=== PATIENT | female | born 1950 | race Hispanic/Latino ===

== ENCOUNTER 2016-03-29 08:19 | Outpatient (CLI) | payer MEDICARE ==
--- NOTE | 2016-03-29 08:55 | Mammography Report ---
Right mammogram: Additional lateral compression imaging is performed for asymmetry described on recent screening study of March 02, 2016. The focal density that was previously noted is no longer identified and compresses as normal tissue. The current findings are unchanged compared to August 2013. Impression: Normal findings. Recommendation: Annual mammogram followup. BI-RADS CATEGORY: 1 = Negative ACR BI-RADS MAMMOGRAPHIC CODES: 0 = Needs additional imaging evaluation; 1 = Negative; 2 = Benign; 3 = Probably benign; 4 = Suspicious; 5 = Malignant; 6 = Known biopsy-proven malignancy COMMENT: 1. Dense breast tissue, i.e., adenosis, fibrocystic changes, etc., may obscure an underlying neoplasm. 2. Approximately 10% of cancers are not detected with mammography. 3. A negative mammography report should not delay biopsy if a clinically suspicious mass is present.
== END 2016-03-29 08:20 | disposition home or self-care (01) ==
LOC: MAMMO 08:19
DX: C50.919 Malignant neoplasm of unspecified site of unspecified female breast (principal); R92.8 Other abnormal and inconclusive findings on diagnostic imaging of breast
CPT/HCPCS: G0206-RT

== ENCOUNTER 2016-11-09 09:13 | Outpatient (CLI) | payer MEDICARE ==
--- NOTE | 2016-11-09 12:56 | XRay Report ---
Bilateral hips with pelvis: Findings: Normal pelvis. Arthritic changes at the joints. No fracture. Cortical irregularity with soft tissue calcification right ischium. Impression: Mild arthritic changes in joints. No lytic or blastic lesion or acute fracture pelvis. Cortical irregularity with soft tissue calcification right ischium.
--- NOTE | 2016-11-09 12:58 | XRay Report ---
Lumbosacral spine 3 views: History: Bone pain, hip pain. Findings: Rotoscoliosis of the lumbar spine with convexity to right. Normal height of vertebral bodies. Decrease in height of the intervertebral disc spaces. Sclerotic articular surfaces with osteophyte suggestive severe degenerative changes. No fracture. Calcified abdominal aorta without aneurysm. L1 vertebral body is not optimally visualized due to rotoscoliosis and possibility of fracture, if present, in the region cannot be entirely excluded. Impression: Findings as detailed above. Degenerative lumbar spine.
--- NOTE | 2016-11-09 13:00 | XRay Report ---
Sacrum and coccyx 2 views: Findings: There is deformity noted at the proximal aspect of coccyx below sacrococcygeal junction. This may be related to old injury. There is no soft tissue swelling noted. No calcification. Impression: Findings as detailed above.
--- NOTE | 2016-11-10 10:31 | Nuclear Medicine Report ---
NUCLEAR MEDICINE BONE SCAN WHOLE BODY History: Bone pain, back pain. Right hip pain. Technique: Anterior and posterior whole body images and oblique images of the pelvis were obtained after 3 hours. 25 mCi of technetium 99m MDP was administered. Findings: Correlation is made with radiographs of the hips, pelvis and lumbar spine performed the same day. There is physiologic uptake of the radiotracer. There is mild to moderate degenerative uptake throughout the thoracic and lumbar spine. This correlates with scoliosis and advanced degenerative changes seen on x-ray. There is no abnormal uptake in the right hip region. No metastatic pattern is appreciated. Impression: Degenerative changes. No fracture or metastatic pattern is detected on bone scan.
== END 2016-11-09 09:14 | disposition home or self-care (01) ==
LOC: NM 09:13
DX: M47.896 Other spondylosis, lumbar region (principal); M47.894 Other spondylosis, thoracic region; M16.0 Bilateral primary osteoarthritis of hip; M89.9 Disorder of bone, unspecified; M53.3 Sacrococcygeal disorders, not elsewhere classified; M41.86 Other forms of scoliosis, lumbar region; I70.0 Atherosclerosis of aorta
CPT/HCPCS: 72100; 72220; 73521; 78306; A9503

== ENCOUNTER 2017-03-04 07:57 | Outpatient (CLI) | payer MEDICARE ==
--- NOTE | 2017-03-04 08:48 | Mammography Report ---
Right mammogram: Left mastectomy. Routine views of the right breast compared to comparable exam in February 2015. There is a heterogeneously dense fibroglandular pattern which is otherwise unremarkable and the findings are unchanged compared to prior examination. CAD not captured. Impression: Stable right breast status post left mastectomy. Recommendation: Annual mammogram followup. BI-RADS CATEGORY: 1 = Negative ACR BI-RADS MAMMOGRAPHIC CODES: 0 = Needs additional imaging evaluation; 1 = Negative; 2 = Benign; 3 = Probably benign; 4 = Suspicious; 5 = Malignant; 6 = Known biopsy-proven malignancy COMMENT: 1. Dense breast tissue, i.e., adenosis, fibrocystic changes, etc., may obscure an underlying neoplasm. 2. Approximately 10% of cancers are not detected with mammography. 3. A negative mammography report should not delay biopsy if a clinically suspicious mass is present.
== END 2017-03-04 07:58 | disposition home or self-care (01) ==
LOC: MAMMO 07:57
DX: Z12.31 Encounter for screening mammogram for malignant neoplasm of breast (principal)
CPT/HCPCS: 77067; G0202

== ENCOUNTER 2017-05-13 08:35 | Outpatient (CLI) | payer MEDICARE ==
[2017-05-13] MEDS ORDERED: XYLOCAINE TOPICAL 4% TP ONE ×2 (09:38→09:39)
[2017-05-13] MEDS ORDERED: XYLOCAINE 1% 20 mL ONE (10:31)
== END 2017-05-13 08:36 | disposition home or self-care (01) ==
LOC: WOUND 08:35
PROVIDERS: ATTEND Internal Medicine
DX: I87.312 Chronic venous hypertension (idiopathic) with ulcer of left lower extremity (principal); L97.821 Non-pressure chronic ulcer of other part of left lower leg limited to breakdown of skin; J44.1 Chronic obstructive pulmonary disease with (acute) exacerbation; Z87.891 Personal history of nicotine dependence; Z72.89 Other problems related to lifestyle; Z85.3 Personal history of malignant neoplasm of breast
CPT/HCPCS: 11044; G0463

== ENCOUNTER 2017-05-15 08:08 | Outpatient (CLI) | payer MEDICARE ==
--- NOTE | 2017-05-18 14:36 | Vascular Lab Report ---
LOWER EXTREMITY ARTERIAL DUPLEX: REASON FOR EXAM: Leg pain. COMMENTS ON THE RIGHT: Triphasic waveforms are seen proximally. Monophasic waveforms are seen distally. Monophasic flow is noted in the posterior tibial artery. Scattered plaque is seen throughout. Findings are consistent with mildly abnormal perfusion. Findings are potentially consistent with the ability to heal distal wounds. COMMENTS ON THE LEFT: Triphasic waveforms are seen proximally. Biphasic waveforms are seen distally. A monophasic signal is seen in the posterior tibial artery. Scattered plaque is seen throughout. Findings are consistent with mildly abnormal perfusion. Findings are potentially consistent with the ability to heal distal wounds. IMPRESSION: RIGHT: Posterior tibial artery occlusive disease. The rest of the arterial flow appears to be adequate. 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 The rest of the arterial flow appears to be adequate.
== END 2017-05-15 08:09 | disposition home or self-care (01) ==
LOC: VAS 08:08
PROVIDERS: ATTEND Internal Medicine
DX: I70.203 Unspecified atherosclerosis of native arteries of extremities, bilateral legs (principal)
CPT/HCPCS: 93925

== ENCOUNTER 2017-05-20 08:19 | Outpatient (CLI) | payer MEDICARE ==
[2017-05-20] MEDS ORDERED: XYLOCAINE TOPICAL 4% TP ONE (08:31)
== END 2017-05-20 08:20 | disposition home or self-care (01) ==
LOC: WOUND 08:19
PROVIDERS: ATTEND Internal Medicine
DX: L97.821 Non-pressure chronic ulcer of other part of left lower leg limited to breakdown of skin (principal); I87.312 Chronic venous hypertension (idiopathic) with ulcer of left lower extremity; J44.1 Chronic obstructive pulmonary disease with (acute) exacerbation; Z87.891 Personal history of nicotine dependence; Z72.89 Other problems related to lifestyle

== ENCOUNTER 2017-05-27 08:08 | Outpatient (CLI) | payer MEDICARE ==
[2017-05-27] MEDS ORDERED: XYLOCAINE TOPICAL 4% TP ONE (08:28)
== END 2017-05-27 08:09 | disposition home or self-care (01) ==
LOC: WOUND 08:08
PROVIDERS: ATTEND Internal Medicine
DX: L97.821 Non-pressure chronic ulcer of other part of left lower leg limited to breakdown of skin (principal); J44.1 Chronic obstructive pulmonary disease with (acute) exacerbation; Z85.3 Personal history of malignant neoplasm of breast; Z87.891 Personal history of nicotine dependence

== ENCOUNTER 2017-06-03 08:01 | Outpatient (CLI) | payer MEDICARE ==
[2017-06-03] MEDS ORDERED: XYLOCAINE TOPICAL 4% TP ONE ×2 (08:30→08:31)
[2017-06-03] MEDS ORDERED: XYLOCAINE 2% INFILTRATI NR (09:09)
== END 2017-06-03 08:02 | disposition home or self-care (01) ==
LOC: WOUND 08:01
PROVIDERS: ATTEND Internal Medicine
DX: L97.821 Non-pressure chronic ulcer of other part of left lower leg limited to breakdown of skin (principal); I87.312 Chronic venous hypertension (idiopathic) with ulcer of left lower extremity; I87.8 Other specified disorders of veins; J44.1 Chronic obstructive pulmonary disease with (acute) exacerbation; D05.90 Unspecified type of carcinoma in situ of unspecified breast; Z87.891 Personal history of nicotine dependence
CPT/HCPCS: 29581

== ENCOUNTER 2017-06-10 08:04 | Outpatient (CLI) | payer MEDICARE ==
[2017-06-10] MEDS ORDERED: XYLOCAINE TOPICAL 4% TP ONE ×2 (08:22→08:31)
== END 2017-06-10 08:05 | disposition home or self-care (01) ==
LOC: WOUND 08:04
PROVIDERS: ATTEND Internal Medicine
DX: I87.312 Chronic venous hypertension (idiopathic) with ulcer of left lower extremity (principal); L97.821 Non-pressure chronic ulcer of other part of left lower leg limited to breakdown of skin; J44.1 Chronic obstructive pulmonary disease with (acute) exacerbation; Z85.3 Personal history of malignant neoplasm of breast; Z87.891 Personal history of nicotine dependence
CPT/HCPCS: 29581

== ENCOUNTER 2017-06-17 08:02 | Outpatient (CLI) | payer MEDICARE ==
[2017-06-17] MEDS ORDERED: XYLOCAINE TOPICAL 4% TP ONE (08:16)
== END 2017-06-17 08:03 | disposition home or self-care (01) ==
LOC: WOUND 08:02
PROVIDERS: ATTEND Internal Medicine
DX: I87.312 Chronic venous hypertension (idiopathic) with ulcer of left lower extremity (principal); L97.821 Non-pressure chronic ulcer of other part of left lower leg limited to breakdown of skin; J44.1 Chronic obstructive pulmonary disease with (acute) exacerbation; Z85.3 Personal history of malignant neoplasm of breast; Z87.891 Personal history of nicotine dependence

== ENCOUNTER 2017-06-24 08:05 | Outpatient (CLI) | payer MEDICARE ==
[2017-06-24] MEDS ORDERED: XYLOCAINE TOPICAL 4% TP ONE (08:28)
== END 2017-06-24 08:06 | disposition home or self-care (01) ==
LOC: WOUND 08:05
PROVIDERS: ATTEND Internal Medicine
DX: I87.312 Chronic venous hypertension (idiopathic) with ulcer of left lower extremity (principal); L97.821 Non-pressure chronic ulcer of other part of left lower leg limited to breakdown of skin; S81.801D Unspecified open wound, right lower leg, subsequent encounter; J44.1 Chronic obstructive pulmonary disease with (acute) exacerbation; Z85.3 Personal history of malignant neoplasm of breast; Z87.891 Personal history of nicotine dependence; X58.XXXD Exposure to other specified factors, subsequent encounter

== ENCOUNTER 2017-07-01 08:07 | Outpatient (CLI) | payer MEDICARE ==
[2017-07-01] MEDS ORDERED: XYLOCAINE TOPICAL 4% TP ONE ×2 (08:36→08:37)
[2017-07-01] MEDS ORDERED: SODIUM CHLORIDE FLUSH SYRINGE 10 ML IV ONE ×2 (08:56→09:05)
== END 2017-07-01 08:08 | disposition home or self-care (01) ==
LOC: WOUND 08:07
PROVIDERS: ATTEND Internal Medicine
DX: I87.312 Chronic venous hypertension (idiopathic) with ulcer of left lower extremity (principal); L97.821 Non-pressure chronic ulcer of other part of left lower leg limited to breakdown of skin; S81.801D Unspecified open wound, right lower leg, subsequent encounter; J44.1 Chronic obstructive pulmonary disease with (acute) exacerbation; Z85.3 Personal history of malignant neoplasm of breast; Z87.891 Personal history of nicotine dependence; X58.XXXD Exposure to other specified factors, subsequent encounter
CPT/HCPCS: 15275; Q4158

== ENCOUNTER 2017-07-08 08:01 | Outpatient (CLI) | payer MEDICARE ==
[2017-07-08] MEDS ORDERED: XYLOCAINE TOPICAL 4% TP ONE (08:38)
[2017-07-08] MEDS ORDERED: SODIUM CHLORIDE FLUSH SYRINGE 10 ML IV ONE (08:48)
[2017-07-09] MEDS ORDERED: SODIUM CHLORIDE FLUSH SYRINGE 10 ML IV ONE (08:51)
== END 2017-07-08 08:02 | disposition home or self-care (01) ==
LOC: WOUND 08:01
PROVIDERS: ATTEND Internal Medicine
DX: I87.312 Chronic venous hypertension (idiopathic) with ulcer of left lower extremity (principal); L97.821 Non-pressure chronic ulcer of other part of left lower leg limited to breakdown of skin; J44.1 Chronic obstructive pulmonary disease with (acute) exacerbation; Z85.3 Personal history of malignant neoplasm of breast; Z87.891 Personal history of nicotine dependence
CPT/HCPCS: 15271; Q4158; 15275

== ENCOUNTER 2017-07-15 09:50 | Outpatient (CLI) | payer MEDICARE ==
[2017-07-15] MEDS ORDERED: XYLOCAINE TOPICAL 4% TP ONE (10:23)
[2017-07-15] MEDS ORDERED: SODIUM CHLORIDE FLUSH SYRINGE 10 ML IV ONE ×2 (10:52→14:00)
== END 2017-07-15 09:51 | disposition home or self-care (01) ==
LOC: WOUND 09:50
PROVIDERS: ATTEND Internal Medicine
DX: I87.312 Chronic venous hypertension (idiopathic) with ulcer of left lower extremity (principal); L97.821 Non-pressure chronic ulcer of other part of left lower leg limited to breakdown of skin; J44.1 Chronic obstructive pulmonary disease with (acute) exacerbation; Z85.3 Personal history of malignant neoplasm of breast; Z87.891 Personal history of nicotine dependence
CPT/HCPCS: 15271; Q4158

== ENCOUNTER 2017-07-22 09:48 | Outpatient (CLI) | payer MEDICARE ==
[2017-07-22] MEDS ORDERED: XYLOCAINE TOPICAL 4% TP ONE ×2 (10:30→10:38)
== END 2017-07-22 09:49 | disposition home or self-care (01) ==
LOC: WOUND 09:48
PROVIDERS: ATTEND Surgery
DX: I87.312 Chronic venous hypertension (idiopathic) with ulcer of left lower extremity (principal); L97.821 Non-pressure chronic ulcer of other part of left lower leg limited to breakdown of skin; J44.1 Chronic obstructive pulmonary disease with (acute) exacerbation; Z85.3 Personal history of malignant neoplasm of breast; Z87.891 Personal history of nicotine dependence

== ENCOUNTER 2017-07-29 10:08 | Outpatient (CLI) | payer MEDICARE ==
[2017-07-29] MEDS ORDERED: XYLOCAINE TOPICAL 4% TP ONE ×2 (10:17→11:34)
== END 2017-07-29 10:09 | disposition home or self-care (01) ==
LOC: WOUND 10:08
PROVIDERS: ATTEND Surgery
DX: I87.312 Chronic venous hypertension (idiopathic) with ulcer of left lower extremity (principal); L97.821 Non-pressure chronic ulcer of other part of left lower leg limited to breakdown of skin; J44.1 Chronic obstructive pulmonary disease with (acute) exacerbation; Z85.3 Personal history of malignant neoplasm of breast; Z87.891 Personal history of nicotine dependence

== ENCOUNTER 2017-08-05 09:58 | Outpatient (CLI) | payer MEDICARE ==
[2017-08-05] MEDS ORDERED: XYLOCAINE TOPICAL 4% TP ONE (10:12)
== END 2017-08-05 09:59 | disposition home or self-care (01) ==
LOC: WOUND 09:58
PROVIDERS: ATTEND Surgery
DX: I87.312 Chronic venous hypertension (idiopathic) with ulcer of left lower extremity (principal); L97.821 Non-pressure chronic ulcer of other part of left lower leg limited to breakdown of skin; J44.1 Chronic obstructive pulmonary disease with (acute) exacerbation; Z85.3 Personal history of malignant neoplasm of breast; Z87.891 Personal history of nicotine dependence
CPT/HCPCS: 97597

== ENCOUNTER 2017-08-14 09:50 | Outpatient (CLI) | payer MEDICARE ==
[2017-08-14] MEDS ORDERED: XYLOCAINE TOPICAL 4% TP ONE ×2 (09:56→10:10)
== END 2017-08-14 09:51 | disposition home or self-care (01) ==
LOC: WOUND 09:50
PROVIDERS: ATTEND Surgery
DX: I87.312 Chronic venous hypertension (idiopathic) with ulcer of left lower extremity (principal); L97.821 Non-pressure chronic ulcer of other part of left lower leg limited to breakdown of skin; J44.1 Chronic obstructive pulmonary disease with (acute) exacerbation; Z85.3 Personal history of malignant neoplasm of breast; Z87.891 Personal history of nicotine dependence

== ENCOUNTER 2017-08-20 10:24 | Outpatient (CLI) | payer MEDICARE ==
[2017-08-20] MEDS ORDERED: XYLOCAINE TOPICAL 4% TP ONE ×2 (10:47→10:53)
== END 2017-08-20 10:25 | disposition home or self-care (01) ==
LOC: WOUND 10:24
PROVIDERS: ATTEND Surgery
DX: I87.312 Chronic venous hypertension (idiopathic) with ulcer of left lower extremity (principal); L97.821 Non-pressure chronic ulcer of other part of left lower leg limited to breakdown of skin; J44.1 Chronic obstructive pulmonary disease with (acute) exacerbation; Z85.3 Personal history of malignant neoplasm of breast; Z87.891 Personal history of nicotine dependence

== ENCOUNTER 2017-08-27 10:05 | Outpatient (CLI) | payer MEDICARE ==
[2017-08-27] MEDS ORDERED: XYLOCAINE TOPICAL 4% TP ONE ×2 (10:10→14:01)
== END 2017-08-27 10:06 | disposition home or self-care (01) ==
LOC: WOUND 10:05
PROVIDERS: ATTEND Surgery
DX: I87.312 Chronic venous hypertension (idiopathic) with ulcer of left lower extremity (principal); L97.821 Non-pressure chronic ulcer of other part of left lower leg limited to breakdown of skin; J44.1 Chronic obstructive pulmonary disease with (acute) exacerbation; Z85.3 Personal history of malignant neoplasm of breast; Z87.891 Personal history of nicotine dependence

== ENCOUNTER 2017-09-03 09:53 | Outpatient (CLI) | payer MEDICARE ==
[2017-09-03] MEDS ORDERED: XYLOCAINE TOPICAL 4% TP ONE ×2 (10:40→15:38)
== END 2017-09-03 09:54 | disposition home or self-care (01) ==
LOC: WOUND 09:53
PROVIDERS: ATTEND Surgery
DX: I87.312 Chronic venous hypertension (idiopathic) with ulcer of left lower extremity (principal); L97.821 Non-pressure chronic ulcer of other part of left lower leg limited to breakdown of skin; J44.1 Chronic obstructive pulmonary disease with (acute) exacerbation; Z85.3 Personal history of malignant neoplasm of breast; Z87.891 Personal history of nicotine dependence

== ENCOUNTER 2017-09-10 09:56 | Outpatient (CLI) | payer MEDICARE ==
[2017-09-10] MEDS ORDERED: XYLOCAINE TOPICAL 4% TP ONE ×2 (10:20→15:01)
== END 2017-09-10 09:57 | disposition home or self-care (01) ==
LOC: WOUND 09:56
PROVIDERS: ATTEND Surgery
DX: I87.312 Chronic venous hypertension (idiopathic) with ulcer of left lower extremity (principal); L97.821 Non-pressure chronic ulcer of other part of left lower leg limited to breakdown of skin; J44.1 Chronic obstructive pulmonary disease with (acute) exacerbation; Z85.3 Personal history of malignant neoplasm of breast; Z87.891 Personal history of nicotine dependence

== ENCOUNTER 2017-09-19 09:51 | Outpatient (CLI) | payer MEDICARE ==
[2017-09-19] MEDS ORDERED: XYLOCAINE TOPICAL 4% TP ONE ×2 (10:08→10:15)
== END 2017-09-19 09:52 | disposition home or self-care (01) ==
LOC: WOUND 09:51
PROVIDERS: ATTEND Surgery
DX: I87.312 Chronic venous hypertension (idiopathic) with ulcer of left lower extremity (principal); L97.821 Non-pressure chronic ulcer of other part of left lower leg limited to breakdown of skin; J44.1 Chronic obstructive pulmonary disease with (acute) exacerbation; Z85.3 Personal history of malignant neoplasm of breast; Z87.891 Personal history of nicotine dependence

== ENCOUNTER 2017-10-02 09:49 | Outpatient (CLI) | payer MEDICARE | END 2017-10-02 09:50 | disposition home or self-care (01) | LOC: WOUND 09:49 | PROVIDERS: ATTEND Surgery | DX: I87.312 Chronic venous hypertension (idiopathic) with ulcer of left lower extremity (principal); L97.821 Non-pressure chronic ulcer of other part of left lower leg limited to breakdown of skin; J44.1 Chronic obstructive pulmonary disease with (acute) exacerbation; Z85.3 Personal history of malignant neoplasm of breast; Z87.891 Personal history of nicotine dependence | CPT/HCPCS: 99213; G0463 ==

== ENCOUNTER 2018-12-01 10:46 | Outpatient (CLI) | payer MEDICARE ==
--- NOTE | 2018-12-02 15:43 | Mammography Report ---
BONE DEXA. History: OSTEOPOROSIS/MALIGNANT NEOPLASM OF UPPER INNER QUAD OF L BREAST Procedure: 3 site bone densitometry performed on a Hologic scanner. Comparison: 04/07/2013 for the spine and left hip and 10/11/2015 for the left hip. No comparison study of the right hip. Findings: The BMD of the lumbar spine is 1.332 gm/cm2 with a T-score of +2.6 and a Z-score of +4.6 . This gita res to 1.203gm/cm2 on the last exam and represents a +10.7% change from the previous baseline. The total BMD of the left hip is 0.758 gm/cm2 with a T-score of -1.5 and a Z-score of -0.1. This comp bobby to 0.763 on the last exam and represents a -0.7% change from the last study and a +5.2 % change from baseline. The total BMD of the right is 0.731gm/cm2 with a T score of -1.7 and a Z score of -0.3. There is no c omparison study for the right hip. IMPRESSION: 1. WHO Classification: Normal with average fracture risk based on lumbar spine measurements. A signif icant improvement in BMD compared to the last exam but this is probably related to endplate sclerosis secondary to degenerative disc disease. 2. WHO classification: Osteopenia with increased fracture risk based on left hip measurements. A slig ht decline in left hip BMD compared to the last exam. 3. WHO classification: Osteopenia with increased fracture risk based on right hip measurements. No co mparison study of the right hip. 4. The FRAX 10 year fracture probability for a major osteoporotic fracture is 11% . 5. The FRAX 10 year fracture probability for right hip fracture is 2.2% and fracture probability for the left hip is 1.8%. Note:FRAX version 3.01. Fracture probability calculated for an untreated patient. Fracture probabilit y may be lower if the patient has received treatment. RECOMMENDATION: Clinical correlation and routine screening. Definitions: BMD = Bone Mineral Density T score = BMD related to mean peak bone mass of young adult ([place] expressed an standard deviation) Z score = Age-matched BMD expressed in SD World health organization (WHO) diagnostic criteria: Normal: T score greater than -1 SD. Osteopenia: T score between - SD and -2.4 SD. Osteoporosis: T score -2.5 SD or below Note: BMD is not the only risk factor for fracture; also consider factors such as the patient's age, risk of falling, previous osteoporotic fracture, family history of osteoporotic fractures, smoking st atus and low body weight. All treatment decisions require clinical judgment and consideration of individual patient factors inc luding patient preferences, comorbidities, previous drug use and risk factors not captured in the FRA X model (e.g. Frailty, falls, vitamin D deficiency, increased bone turnover, interval significant dec line in BMD). A more detailed DEXA Bone Densitometry report is available upon request. Signer Name: Federico Mooney MD Signed: 12/02/2018 3:39 PM Workstation Name: [id number]
== END 2018-12-01 10:47 | disposition home or self-care (01) ==
LOC: MAMMO 10:46
PROVIDERS: ATTEND Internal Medicine Hematology & Oncology
DX: M85.88 Other specified disorders of bone density and structure, other site (principal); M81.0 Age-related osteoporosis without current pathological fracture
CPT/HCPCS: 77080

== ENCOUNTER 2019-03-06 10:46 | Outpatient (CLI) | payer MEDICARE ==
--- NOTE | 2019-03-06 12:26 | Mammography Report ---
RIGHT DIGITAL SCREENING MAMMOGRAM WITH CAD INDICATION: Routine screening mammography, status post left mastectomy.. TECHNIQUE: Digital right 2D mammography was obtained in the craniocaudal and mediolateral oblique pr ojections. This examination was interpreted with the benefit of Computer-Aided Detection analysis. COMPARISON: 03/05/2018, 03/04/2017. FINDINGS: The right breast is heterogeneously dense which may obscure small masses. No suspicious mass, microcalcifications, or architectural distortion. IMPRESSION: No evidence of breast malignancy. Recommend routine screening mammogram in one year. BI-RADS Category 1: Negative. No mammographic evidence of malignancy. Recommend routine screening m ammography in one year. A "normal" or negative report should not discourage follow up or biopsy of a clinically significant f inding. A written summary of these findings will be mailed to the patient. The patient will be entered into a mammography reporting system which will generate a reminder letter for the patient's next appointmen t at the appropriate interval. The [employer] recommends yearly mammograms starting at age 40 and continuing as l melissa as a woman is in good health. Breast MRI is recommended for women with an approximate 20-25% or greater lifetime risk of breast cancer, including women with a strong family history of breast or ova alphonso cancer or who have been treated for Hodgkin's disease. Signer Name: Sy Corona MD Signed: 03/06/2019 12:22 PM Workstation Name: [id number]
== END 2019-03-06 10:47 | disposition home or self-care (01) ==
LOC: MAMMO 10:46
DX: Z12.31 Encounter for screening mammogram for malignant neoplasm of breast (principal)

== ENCOUNTER 2020-03-07 10:22 | Outpatient (CLI) | payer MEDICARE ==
--- NOTE | 2020-03-07 14:22 | Mammography Report ---
DIGITAL SCREENING MAMMOGRAM WITH CAD, 03/07/2020 INDICATION: Routine screening mammography. TECHNIQUE: Digital bilateral 2D mammography was obtained in the craniocaudal and mediolateral obliq ue projections. This examination was interpreted with the benefit of Computer-Aided Detection analysi s. COMPARISON: 03/06/2019 FINDINGS: Breast Density: The breasts are heterogeneously dense, which may obscure small masses. There is no evidence of dominant mass, suspicious calcifications or architectural distortion in eithe r breast. IMPRESSION: Follow up recommendation: Routine yearly BI-RADS Category 1: Negative. A "normal" or negative report should not discourage follow up or biopsy of a clinically significant f inding. A written summary of these findings will be mailed to the patient. The patient will be entered into a mammography reporting system which will generate a reminder letter for the patient's next appointmen t at the appropriate interval. The [employer] recommends yearly mammograms starting at age 40 and continuing as l melissa as a woman is in good health. Breast MRI is recommended for women with an approximate 20-25% or greater lifetime risk of breast cancer, including women with a strong family history of breast or ova alphonso cancer or who have been treated for Hodgkin's disease. Signer Name: Geovanni Narvaez MD Signed: 03/07/2020 2:18 PM Workstation Name: [id number]
== END 2020-03-07 10:23 | disposition home or self-care (01) ==
LOC: MAMMO 10:22
PROVIDERS: ATTEND Nurse Practitioner
DX: Z12.31 Encounter for screening mammogram for malignant neoplasm of breast (principal)